=== PATIENT | female | born 1995 ===

== ENCOUNTER 2017-09-09 17:41 | Emergency (ER) | payer SELFPAY ==
[2017-09-09 17:42] VITALS: BP 112/52; PULSE 82; RESP 16; TEMP 99.2; O2SAT 97
[2017-09-09] MEDS ORDERED: MAGICADU2 SWISH-SPIT (19:03)
[2017-09-09] MEDS ORDERED: ACYC400T PO (19:03)
--- NOTE | 2017-09-09 19:09 | PD ---
HPI Chief Complaint: Oral / Dental Pain or Problem Time Seen by Provider: 18:54 Travel History International Travel<30 days: No Contact w/Intl Traveler<30days: No Traveled to known affect area: No History of Present Illness HPI 22-year-old female presents for evaluation of painful mouth lesions. Symptoms started 1 week ago. It hurts to eat. She reports that she had a fever one week ago but none since then. She was seen at an outside emergency room 4 days ago and prescribed Percocet but symptoms persisted which prompted evaluation. She has never had this problem before. Denies cough, congestion. Denies rash. She has no other complaints at this time. PFSH Past Medical History ?: Not Social History Alcohol Use: No Tobacco Use: No Allergies-Medications (Allergen,Severity, Reaction): Coded Allergies: No Known Allergies (Unverified , 09/09/17) Reported Meds & Prescriptions Reported Meds & Active Scripts Active Magic Mouthwash Adult Liq (Multi-Ingredient Mouthwash/Gargle) 120 Ml Susp 10 Ml SWISH-SPIT ACHS Each 5mL contains: Nystatin 200,000units, Diphenhydramine 4.25mg, Viscous Lidocaine 10mg, Lang syrup 0.8 mL Acyclovir 400 Mg Tab 400 Mg PO TID 7 Days Review of Systems Except as stated in HPI: all other systems reviewed are Neg Physical Exam Narrative GENERAL: Well-nourished female in no acute distress SKIN: Warm and dry. HEAD: Atraumatic. Normocephalic. EYES: Pupils equal and round. No scleral icterus. No injection or drainage. ENT: No nasal bleeding or discharge. Mucous membranes pink and moist. Vesicular lesions noted on the lips and gum mucosa. No oral pharyngeal erythema or exudate. NECK: Trachea midline. No JVD. Anterior cervical lymphadenopathy noted. CARDIOVASCULAR: Regular rate and rhythm. No murmur appreciated. RESPIRATORY: No accessory muscle use. Clear to auscultation. Breath sounds equal bilaterally. Data Data Last Documented VS Vital Signs Date Time Temp Pulse Resp B/P (MAP) Pulse Ox O2 Delivery O2 Flow Rate FiO2 09/09/17 17:42 99.2 82 16 112/52 (72) 97 MDM Medical Decision Making Medical Screen Exam Complete: Yes Emergency Medical Condition: Yes Medical Record Reviewed: Yes Differential Diagnosis Herpetic gingivostomatitis, herpangina, pharyngitis Narrative Course Examination is consistent with gingivostomatitis, likely herpetic, likely the patient's first episode. She will be started on acyclovir. Diagnosis Primary Impression: Gingivostomatitis Additional Instructions: Medication as prescribed. Stay well-hydrated and well-nourished. Return for any acutely nor worsening symptoms. Med/Other Pt SpecificInfo: Prescription(s) given Scripts Enseuhos-Ruzmqlzhrwrprxd-Gfabmtwub Liq (Magic Mouthwash Adult Liq) 120 Ml Susp 10 ML SWISH-SPIT ACHS for Mouth sores, #120 ML 0 Refills Each 5mL contains: Nystatin 200,000units, Diphenhydramine 4.25mg, Viscous Lidocaine 10mg, Lang syrup 0.8 mL Prov: Lorenzo Liu MD 09/09/17 Acyclovir (Acyclovir) 400 Mg Tab 400 MG PO TID for Mgmt Viral Infection for 7 Days, TAB 0 Refills Prov: Lorenzo Liu MD 09/09/17 Disposition: 01 DISCHARGE HOME Condition: Stable Brayan Pastor Sep 09, 2017 19:09
== END 2017-09-09 19:43 | disposition home or self-care (01) ==
LOC: NEPK 17:41
DX: K05.10 Chronic gingivitis, plaque induced (principal)
CPT/HCPCS: 99283